=== PATIENT | male | born 1960 | race Caucasian/White ===

== ENCOUNTER 2019-04-11 12:01 | Emergency (ER) | payer OTHER ==
--- NOTE | 2019-04-11 13:20 | RADIOLOGY REPORT (SQ) ---
EXAM DESCRIPTION: TIBIA FIBULA LEFT COMPLETED DATE/TIME: 04/11/2019 1:01 pm REASON FOR STUDY: positive deformity; injury COMPARISON: None. NUMBER OF VIEWS: Two views, 5 images of the left leg to include AP and lateral ankle. LIMITATIONS: None. FINDINGS: There is acute fracture dislocation at the tibiotalar articulation. Fracture involves the posterior 3rd of the tibial articular surface and posterior malleolus. The talus and foot follow th is fragment, dislocated posteriorly. The talar dome looks intact. No visualized foot fracture. There is a fragment between the tibia and fibula on the AP view which may represent an additional acu te fracture, likely fibula. Above the acute fractures, there is old distal tibial shaft healed fracture with deformity. OTHER: No other significant finding. IMPRESSION: 1. Acute on chronic leg fractures. Below an old tibial fracture, there are acute fractures in the di stal tibia and fibula. Associated dislocation at the ankle joint. TECHNICAL DOCUMENTATION: JOB ID: [id number] Reading location - IP/workstation name: [email or web address]
[2019-04-11] MEDS ORDERED: FENTANYL CITRATE INJ/PF 100 MCG/2 ML AMPUL IV ONE (13:27)
[2019-04-11] MEDS ORDERED: ONDANSETRON HCL INJ/PF 4 MG/2 ML SDV IV ONE (13:28)
[2019-04-11 14:15] LABS: ABSOLUTE EOSINOPHILS # (AUTO) 0.1 10^3/uL (0.0-0.6); ABSOLUTE LYMPHOCYTES (AUTO) 1.4 10^3/uL (0.5-4.7); ABSOLUTE MONOCYTES (AUTO) 0.6 10^3/uL (0.1-1.4); ABSOLUTE NEUT (AUTO) 7.8 10^3/uL (1.7-8.2); BASOPHILS % (AUTO) 0.4 % (0-2); HEMOGLOBIN 15.2 g/dL (13.5-17.0); LYMPHOCYTES % (AUTO) 14.2 % (13-45); MEAN CORPUSCULAR HEMOGLOBIN 32.7 pg (27.0-33.4); MEAN CORPUSCULAR HGB CONC 36.3 g/dL (32.0-36.0); MEAN CORPUSCULAR VOLUME 90 fl (80-97); MONOCYTES % (AUTO) 6.1 % (3-13); PLATELET COUNT 328 10^3/uL (150-450); RED BLOOD COUNT 4.66 10^6/uL (4.35-5.55); SEGMENTED NEUTROPHILS % (AUTO) 78.3 % (42-78); TOTAL CELLS COUNTED % (AUTO) 100 %
[2019-04-11 14:22] LABS: INTERNATIONAL RATION (INR) 0.91; PROTHROMBIN TIME 12.2 SEC (11.4-15.4)
[2019-04-11 14:23] LABS: PARTIAL THROMBOPLASTIN TIME 27.7 SEC (23.5-35.8)
[2019-04-11 14:36] LABS: ALBUMIN 4.4 g/dL (3.5-5.0); ALKALINE PHOSPHATASE 99 U/L (38-126); ANION GAP 6 (5-19); ASPARTATE AMINO TRANSFERASE 48 U/L (17-59); BILIRUBIN,TOTAL 0.4 mg/dL (0.2-1.3); BLOOD UREA NITROGEN 12 mg/dL (7-20); CALCIUM 9.5 mg/dL (8.4-10.2); CARBON DIOXIDE 29 mmol/L (22-30); CHLORIDE 102 mmol/L (98-107); GLUCOSE 108 mg/dL (75-110); POTASSIUM 4.2 mmol/L (3.6-5.0); TOTAL PROTEIN 7.1 g/dL (6.3-8.2)
[2019-04-11] MEDS ORDERED: PROPOFOL INJ 200 MG/20 ML VIAL IV ONE (14:42)
[2019-04-11] MEDS ORDERED: NORMAL SALINE 1000 ML 1,000 ML IV ONE (14:42)
--- NOTE | 2019-04-11 15:54 | RADIOLOGY REPORT (SQ) ---
EXAM DESCRIPTION: ANKLE LEFT AP/LATERAL COMPLETED DATE/TIME: 04/11/2019 3:25 pm REASON FOR STUDY: post reduction COMPARISON: Pre reduction radiographs same date. FINDINGS: Two views left ankle labeled "Post reduction" : Fracture dislocation has been reduced, ne tim anatomic alignment. TECHNICAL DOCUMENTATION: JOB ID: [id number] Reading location - IP/workstation name: [email or web address]
[2019-04-11] MEDS ORDERED: HYDROCODONE/ACETAMINOPHEN 5-325 MG (6 TAB/ER DISP) PO PRN (16:42)
--- NOTE | 2019-04-11 17:00 | RADIOLOGY REPORT (SQ) ---
EXAM DESCRIPTION: CT LT LOWER EXTREMITY WITHOUT COMPLETED DATE/TIME: 04/11/2019 4:41 pm REASON FOR STUDY: evaluation of fracture COMPARISON: Recent radiographs TECHNIQUE: Axial imaging performed through the left leg and ankle with reformatted coronal and sagit rod imaging windowed for bone and soft tissues. Images saved to PACS. 3D IMAGING: Were 3D images as MIP, SSD, or volume rendering performed at the work station? No. All CT scanners at this facility use dose modulation, iterative reconstruction, and/or weight based d osing when appropriate to reduce radiation dose to as low as reasonably achievable (ALARA). [facility]: Dose Right [facility]: CareDose [facility]: Dose Right [facility]: Teradose 4D [facility]: [employer] LIMITATIONS: None. RADIATION DOSE: CT Rad equipment meets quality standard of care and radiation dose reduction techniq ues were employed. CTDIvol: 4.1 mGy. DLP: 165 mGy-cm. mGy. FINDINGS: SOFT TISSUES: No obvious swelling or foreign body. BONES: - As seen radiographically, comminuted intra-articular distal tibial fracture. This involves the pos terior tibial plafond with comminuted fracture extending into the medial malleolus as well. There is an approximate 7 mm gap in the tibial articular surface, into which a portion of the proximal fibula fracture fragment projects (see fibular fracture description below). - There is minimally comminuted longitudinal fracture through the distal fibula as well. This begins at approximately 5 cm above the ankle joint and extends distally. There is 1/2 - 1 shaft diameter d isplacement. The distal fragment remains in continuity with the talus. A portion of the fibula shaf t projects into the tibial fracture gap laterally. This is best demonstrated on axial series 2 image 129/153 and adjacent slices. -no evidence of talus or visualized hindfoot fracture. MINERALIZATION: Normal. OTHER: Additional chronic fracture in the tibial shaft, well healed with deformity. IMPRESSION: 1. Complex ankle fracture as above. There is a gap in the lateral tibial articular surface, into whi ch a portion of the fibular fracture is mildly displaced. TECHNICAL DOCUMENTATION: JOB ID: [id number] Quality ID # [id number]: Final reports with documentation of one or more dose reduction techniques (e.g., Au tomated exposure control, adjustment of the mA and/or kV according to patient size, use of iterative reconstruction technique) 2010 [facility] [employer] All Rights Reserved Reading location - IP/workstation name: [email or web address]
[2019-04-11] MEDS ORDERED: MORPHINE SULFATE 10 MG/ML INJ IV ONE (17:25)
--- NOTE | 2019-04-11 18:13 | ER Document Report ---
Entered by DEANGELO LLOYD SCRIBE 04/11/19 1234 Acting as scribe for:VICTOR M RADER DO ED Fall - General Chief Complaint: Fall Injury Stated Complaint: FALL,LEFT LEG INJURY Time Seen by Provider: 04/11/19 12:17 Primary Care Provider: YADIRA CORRAL MD [ACTIVE PROVISIONAL STAFF] - Follow up as needed Information source: Patient Notes: This 58 year old male patient presents to the emergency department today with complaints of left leg pain. Patient was walking down a ramp and it was raining outside, adding that he slipped on the wet concrete. Patient complains of left lower extremity pain with an obvious deformity to the left ankle. Patient denies any other injuries. - Related data Allergies/Adverse Reactions: No Known Allergies Allergy (Verified 04/11/19 12:34) Past Medical History - General Information source: Patient - Social History Smoking Status: Unknown if Ever Smoked Cigarette use (# per day): No Frequency of alcohol use: None Drug Abuse: None Lives with: Family Family History: Reviewed & Not Pertinent - Past Medical History Cardiac Medical History: Reports: Hx Hypertension Traumatic Medical History: Reports: Hx Fractures - left lower extremity Past Surgical History: Reports: Other - Back sx Review of Systems - Review of Systems Constitutional: No symptoms reported EENT: No symptoms reported Cardiovascular: No symptoms reported Respiratory: No symptoms reported Gastrointestinal: No symptoms reported Genitourinary: No symptoms reported Male Genitourinary: No symptoms reported Musculoskeletal: See HPI, Other - left leg pain Skin: No symptoms reported Hematologic/Lymphatic: No symptoms reported Neurological/Psychological: No symptoms reported -: Yes All other systems reviewed and negative Physical Exam - Vital signs Vitals: Resp Pulse Ox 13 98 04/11/19 12:10 04/11/19 12:10 - Notes Notes: Physical Exam: General: Alert, appears uncomfortable. HEENT: Normocephalic. Atraumatic. PERRL. Extraocular movements intact. Oropharynx clear. Neck: Supple. Non-tender. Respiratory: No respiratory distress. Clear and equal breath sounds bilaterally. Cardiovascular: Regular rate and rhythm. Abdominal: Normal Inspection. Non-tender. No distension. Normal Bowel Sounds. Back: No gross abnormalities. Upper extremities: Normal inspection. Normal ROM. Lower extremities: Deformity of the left ankle with associated tenderness on palpation. Neurological: Normal cognition. AAOx4. Normal speech. Psychological: Normal affect. Normal Mood. Skin: Warm. Dry. Normal color. - Skin Notes: Excellent capillary refill throughout. Pulses intact throughout Course - Re-evaluation Re-evalutation: 04/11/19 18:11 Patient with ankle fracture dislocation on the left. Spoke with Dr. Corral. Looked at postreduction films and there is good alignment. Recommend CT. Patient was having some increasing pain and paresthesias after leg was splinted, but this resolved with loosening splint. He is to follow-up in the orthopedic clinic and also with his primary care doctor. Return if any worsening or concerning symptoms. Return if pain out of proportion, numbness tingling, or cold toes. Understands agrees with plan. Stable for discharge. - Vital Signs Vital signs: Temp Pulse Resp BP Pulse Ox 98.6 F 84 13 161/101 H 100 04/11/19 12:22 04/11/19 15:06 04/11/19 15:16 04/11/19 15:16 04/11/19 15:16 - Laboratory Result Diagrams: 04/11/19 14:01 04/11/19 14:01 Laboratory results interpreted by me: 04/11/19 04/11/19 14:01 14:01 [facility] 36.3 H Seg Neutrophils % 78.3 H ALT 56 H - Diagnostic Test Radiology reviewed: Reports reviewed Procedures - Conscious Sedation Conscious sedation Consent obtained: Yes Prior complications: Procedural sedation Pt with a mild systemic disease.: P2. - ASA Classification. Airway Evaluation: Large tongue Mallampati Classification: Class 2 Used during procedure: Suction available, IV access obtained, Pulse ox on pt., lunchroom monitor on pt. Medications administered: Diprivan Reversal agents: None I personally performed/intraservice time: Sedation, Procedure, 31-45 min Complications: No - Immobilization Left Ankle Pre-Proc Neuro Vasc Exam: Normal Immobilizer type: Short Leg Posterior Performed by: Provider assisted, RN, PCT Post-Proc Neuro Vasc Exam: Normal Alignment checked and good: Yes - Joint Reduction/Fracture Care Left Ankle Consent obtained: Yes Conscious sedation: Yes Pre-procedure NV exam: Yes Fracture: Closed Manipulation comment: distraction Post-procedure NV exam: Yes Post-reduction x-ray: Joint reduced Reduction attempts: 1 Complications: No Discharge - Discharge Clinical Impression: Dislocation of ankle, left, closed Qualifiers: Encounter type: initial encounter Qualified Code(s): S93.05XA - Dislocation of left ankle joint, initial encounter Fracture tibia/fibula Qualifiers: Encounter type: initial encounter Fracture type: closed Laterality: left Qualified Code(s): S82.202A - Unspecified fracture of shaft of left tibia, initial encounter for closed fracture; S82.402A - Unspecified fracture of shaft of left fibula, initial encounter for closed fracture Condition: Stable Disposition: HOME, SELF-CARE Instructions: Dislocation ([facility]), Fractured Tibia ([facility]) Additional Instructions: Please call your primary doctor and an orthopedic doctor for follow-up. Return if you have any further concerns. Prescriptions: Ondansetron [Zofran Odt 4 mg Tablet] 1 tab PO Q6HP PRN #15 tab.rapdis PRN Reason: For Nausea/Vomiting Oxycodone HCl/Acetaminophen [Percocet 5-325 mg Tablet] 1 - 2 tab PO Q4H PRN #30 tablet PRN Reason: Referrals: YADIRA CORRAL MD [ACTIVE PROVISIONAL STAFF] - Follow up as needed I personally performed the services described in the documentation, reviewed and edited the documentation which was dictated to the scribe in my presence, and it accurately records my words and actions.
[2019-04-11 18:18] VITALS: BP 148/104
== END 2019-04-11 18:32 | disposition home or self-care (01) ==
LOC: ER 12:01
DX: S82.52XA Displaced fracture of medial malleolus of left tibia, initial encounter for closed fracture (principal); S82.832A Other fracture of upper and lower end of left fibula, initial encounter for closed fracture; W10.2XXA Fall (on)(from) incline, initial encounter; I10 Essential (primary) hypertension
CPT/HCPCS: 99284; 96361; 99151; 96374; 96375; 36415; 85025; 85610; 85730; 80053; 73600; 73590; 73700; 27752; J3010; J2270; J2405; J7030; J2704